=== PATIENT | male | born 1975 | race Caucasian/White ===

== ENCOUNTER 2017-05-06 04:21 | Emergency (ER) | payer BC ==
[~2017-05-06] VITALS: Ht 180.3 cm; Wt 113.0 kg
[~2017-05-06 04:21] MED LIST: SERTRALINE HCL50 MG; ZOLOFT50 MG PO
[2017-05-06] MEDS ORDERED: FLEXERIL10 MG PO (04:44)
[2017-05-06] MEDS ORDERED: LIDODERM 5% P1 PATCH TD (04:44)
[2017-05-06] MEDS ORDERED: NORCO 5/3251 TABLET PO (04:44)
[2017-05-06 05:20] VITALS: BP 136/56
== END 2017-05-06 05:21 | disposition home or self-care (01) ==
LOC: EME 04:21
DX: M54.42 Lumbago with sciatica, left side (principal)
CPT/HCPCS: 99281; 99283

== ENCOUNTER 2017-09-24 01:57 | Emergency (ER) | payer OTHER ==
[~2017-09-24] VITALS: Ht 180.3 cm; Wt 110.8 kg
[~2017-09-24 01:57] MED LIST changes: +FLEXERIL10 MG PO; +LIDODERM 5% P1 PATCH TD; +NORCO 5/3251 TABLET PO
[2017-09-24] MEDS ORDERED: PERCOCET 5/31 TABLET PO (02:57)
[2017-09-24 04:07] VITALS: BP 132/67
== END 2017-09-24 04:08 | disposition home or self-care (01) ==
LOC: EME 01:57
DX: M54.16 Radiculopathy, lumbar region (principal); M54.32 Sciatica, left side
CPT/HCPCS: 81003; 99281; 99284; J2270